=== PATIENT | female | born 1970 | race African-American/Black ===

== ENCOUNTER 2023-11-18 19:42 | Emergency (ER) | payer SELFPAY ==
[~2023-11-18] VITALS: Ht 162.6 cm; Wt 55.0 kg
[2023-11-18 19:43] VITALS: BP 162/63; TEMP 98.3; O2SAT 100
[2023-11-18 19:45] VITALS: PULSE 72; RESP 16; O2SAT 99
[2023-11-18 20:16] LABS: CLARITY URINE CLEAR (CLEAR); COLOR URINE YELLOW (YELLOW); GLUCOSE URINE NEGATIVE (NEGATIVE); KETONES URINE NEGATIVE (NEGATIVE); LEUKOCYTE ESTERASE URINE NEGATIVE (NEGATIVE); NITRITE URINE NEGATIVE (NEGATIVE); OCCULT BLOOD URINE NEGATIVE (NEGATIVE); PH URINE 5.5 (4.5-8.0); PROTEIN URINE NEGATIVE (NEGATIVE); SPECIFIC GRAVITY URINE 1.011 (1.005-1.030); UROBILINOGEN URINE 0.2 E.U./dL (0.2-1.0)
[2023-11-19] MEDS ORDERED: AMOX600S39 MT (00:54)
== END 2023-11-19 01:10 | disposition home or self-care (01) ==
LOC: ER 19:51
DX: K05.10 Chronic gingivitis, plaque induced (principal); Z88.5 Allergy status to narcotic agent
CPT/HCPCS: 81003; 99283